=== PATIENT | female | born 1985 | race Caucasian/White ===

== ENCOUNTER 2017-02-26 19:25 | Emergency (ER) | payer OTHER ==
[2017-02-26 19:31] VITALS: BP 142/81; PULSE 84; RESP 16; TEMP 98.3; O2SAT 96; BMI 32.1
[2017-02-26 20:52] LABS: BASO # 0.1 K/uL (0.0-0.2); BASO % 0.7 % (0.0-2.0); EOS # 0.1 K/uL (0.0-0.7); EOS % 1.2 % (0.0-4.0); HEMATOCRIT 37.9 % (34.0-47.0); LYMPH # 3.7 K/uL (1.0-4.3); LYMPH % 36.3 % (20.0-40.0); MEAN CELL VOLUME 77.3 fl (81.0-99.0); MEAN CORPUSCULAR HEMOGLOBIN 25.1 pg (27.0-31.0); MEAN CORPUSCULAR HGB CONC 32.4 g/dL (33.0-37.0); MEAN PLATELET VOLUME 7.8 fl (7.2-11.7); MONO # 0.6 K/uL (0.0-0.8); MONO % 5.8 % (0.0-10.0); NEUT # 5.7 K/uL (1.8-7.0); NRBC % 0.1 % (0.0-0.0); RED CELL DISTRIBUTION WIDTH 14.2 % (11.5-14.5); WHITE BLOOD COUNT 10.2 K/uL (4.8-10.8)
--- NOTE | 2017-02-26 21:13 | ED PDOC ---
HPI: Abdomen Time Seen by Provider: 02/26/17 20:13 Chief Complaint (Nursing): Back Pain Chief Complaint (Provider): pelvic pain History Per: Patient History/Exam Limitations: no limitations Onset/Duration Of Symptoms: Days (x3) Current Symptoms Are (Timing): Still Present Additional Complaint(s): Marybeth Matute is a 31 year old female with previous medical history of ovarian cysts, who presents to the emergency department with intermittent mild right- sided pelvic pain associated with vomiting and breast "tenseness" ongoing for 3 days. Denied fever, chills, diarrhea, chest pain, difficulty urinating or bloody urine. Patient stated menstrual period was late this month and had 3 negative tests at home. PMD: none provided Past Medical History Reviewed: Historical Data, Nursing Documentation, Vital Signs Vital Signs: Last Vital Signs Temp 98.3 F 02/26/17 19:31 Pulse 84 02/26/17 19:31 Resp 16 02/26/17 19:31 BP 142/81 02/26/17 19:31 Pulse Ox 96 02/26/17 22:06 - Medical History PMH: No Chronic Diseases Other PMH: ovarian cyst - Surgical History Surgical History: No Surg Hx - Family History Family History: States: Unknown Family Hx - Social History Current smoker - smoking cessation education provided: No Ex-Smoker (has not smoked in the last 12 months): No Alcohol: Occasional Drugs: Denies - Immunization History Hx Tetanus Toxoid Vaccination: No Hx Influenza Vaccination: No Hx Pneumococcal Vaccination: No - Home Medications Home Medications: Ambulatory Orders Medication Instructions Recorded Cyclobenzaprine HCl [Flexeril] 10 mg PO TID #21 tab 03/26/13 Ibuprofen [Motrin] 600 mg PO Q6 PRN #25 tab 03/26/13 Acetaminophen with Codeine 1 tab PO Q8H #10 tab 07/31/14 [Tylenol with Codeine No. 3 300 mg-30 mg] Fluconazole [Diflucan] 150 mg PO ONCE #1 tablet 06/17/15 Naproxen [Anaprox DS] 550 mg PO BID #20 tab 06/17/15 Nitrofurantoin Macrocrystals 100 mg PO BID #6 cap 06/17/15 [Macrobid] Metronidazole [Flagyl] 500 mg PO BID #14 tablet 07/08/15 Nitrofurantoin Macrocrystals 100 mg PO BID #14 cap 07/08/15 [Macrobid] Valacyclovir HCl [Valtrex] 1 gm PO BID #20 tablet 07/08/15 - Allergies Allergies/Adverse Reactions: Allergies Allergy/AdvReac Type Severity Reaction Status Date / Time No Known Allergies Allergy Verified 07/08/15 19:14 Review of Systems ROS Statement: Except As Marked, All Systems Reviewed And Found Negative Constitutional: Negative for: Fever, Chills Cardiovascular: Positive for: Other (breast "tenseness"). Negative for: Chest Pain Gastrointestinal: Positive for: Vomiting. Negative for: Diarrhea Genitourinary Female: Positive for: Pelvic Pain (right-sided). Negative for: Dysuria, Hematuria Physical Exam - Reviewed Nursing Documentation Reviewed: Yes Vital Signs Reviewed: Yes - Physical Exam Appears: Positive for: Well, Non-toxic, No Acute Distress Head Exam: Positive for: ATRAUMATIC, NORMAL INSPECTION, NORMOCEPHALIC Skin: Positive for: Normal Color Eye Exam: Positive for: Normal appearance ENT: Positive for: Normal ENT Inspection Neck: Positive for: Normal, Painless ROM, Supple. Negative for: Decreased ROM Cardiovascular/Chest: Positive for: Regular Rate, Rhythm, Chest Non Tender Respiratory: Positive for: Normal Breath Sounds. Negative for: Decreased Breath Sounds, Wheezing, Respiratory Distress Gastrointestinal/Abdominal: Positive for: Normal Exam, Soft. Negative for: Tenderness, Mass Back: Positive for: Normal Inspection. Negative for: L CVA Tenderness, R CVA Tenderness Extremity: Positive for: Normal ROM. Negative for: Tenderness, Pedal Edema, Deformity Neurologic/Psych: Positive for: Alert, Oriented - Laboratory Results Result Diagrams: 02/26/17 20:40 02/26/17 20:40 - ECG O2 Sat by Pulse Oximetry: 96 (RA) Pulse Ox Interpretation: Normal Medical Decision Making Medical Decision Making: Initial Impression: Pelvic pain Differential Diagnosis: Ovarian cyst/torsion Initial Plan: * BMP * Urine preg * Urine dip CBC * US pelvis/transvag Time: 1951 --UA: negative for or UTI. Time: 2158 --US pelvis/transvag FINDINGS: Uterus/cervix: Unremarkable. No myometrial mass. Uterus measures 6.8 x 2.8 x 3.7 cm. Endometrial stripe measures 4 mm in thickness. Right ovary: Unremarkable. Normal blood flow. Right ovary measures 2.0 x 1.8 x 2.9 cm. Left ovary: Unremarkable. Normal blood flow. Left ovary measures 2.4 x 1.5 x 2.3 cm. Free fluid: No free fluid. IMPRESSION: Normal pelvic ultrasound Scribe Attestation: Documented by Madelin Deras, acting as a scribe for Denilson Salgado MD. Provider Scribe Attestation: All medical record entries made by the Scribe were at my direction and personally dictated by me. I have reviewed the chart and agree that the record accurately reflects my personal performance of the history, physical exam, medical decision making, and the department course for this patient. I have also personally directed, reviewed, and agree with the discharge instructions and disposition. Disposition - Clinical Impression Clinical Impression: Pelvic pain - Patient ED Disposition Is Patient to be Admitted: No Doctor Will See Patient In The: Office Counseled Patient/Family Regarding: Studies Performed, Diagnosis, Need For Followup - Disposition Referrals: [facility] [Outside] Disposition: Routine/Home Disposition Time: 22:46 Condition: GOOD Additional Instructions: Return for worsening. Follow up with your PCP in 2 -3 days. Instructions: Pelvic Pain in Women (ED)
[2017-02-26 21:43] LABS: BLOOD UREA NITROGEN 17 mg/dl (7-17); CALCIUM 9.3 mg/dL (8.4-10.2); CARBON DIOXIDE 21 mmol/L (22-30); CHLORIDE 104 mmol/L (98-107); GFR AFRICAN-AMERICAN > 60; GLUCOSE,RANDOM 98 mg/dL (65-105); POTASSIUM 3.7 MMOL/L (3.6-5.0); SODIUM 138 mmol/l (132-148)
--- NOTE | 2017-02-27 09:24 | US ---
HISTORY: Right pelvic pain COMPARISON: None available. TECHNIQUE: Transabdominal and transvaginal pelvic ultrasound was performed. FINDINGS: UTERUS: Measures 6.8 x 2.8 x 3.7 cm. Anteverted, normal in size and appearance. No fibroid or other mass lesion seen. ENDOMETRIUM: Measures 4.0 mm in diameter. Unremarkable. CERVIX: No cervical abnormality identified. RIGHT OVARY: Measures 2.9 x 1.8 x 2.9 cm. No solid mass. Normal flow. LEFT OVARY: Measures 2.4 x 1.5 x 2.3 cm. No solid mass. Normal flow. FREE FLUID: No significant free fluid noted. OTHER FINDINGS: None. IMPRESSION: Normal pelvic ultrasound.
== END 2017-02-26 23:09 | disposition home or self-care (01) ==
LOC: H.ER 19:25
DX: R10.2 Pelvic and perineal pain (principal); N83.209 Unspecified ovarian cyst, unspecified side

== ENCOUNTER 2018-04-07 16:58 | Emergency (ER) | payer OTHER, SELFPAY ==
[2018-04-07 16:58] VITALS: BMI 32.1
[2018-04-07 17:05] VITALS: RESP 16; O2SAT 99
[2018-04-07 18:10] LABS: BASO # 0.1 K/uL (0.0-0.2); BASO % 0.7 % (0.0-2.0); EOS # 0.1 K/uL (0.0-0.7); EOS % 1.1 % (0.0-4.0); HEMOGLOBIN 12.3 g/dL (12.0-16.0); LYMPH # 2.5 K/uL (1.0-4.3); LYMPH % 26.6 % (20.0-40.0); MEAN CELL VOLUME 78.1 fl (81.0-99.0); MEAN CORPUSCULAR HEMOGLOBIN 25.6 pg (27.0-31.0); MEAN CORPUSCULAR HGB CONC 32.8 g/dL (33.0-37.0); MEAN PLATELET VOLUME 7.8 fl (7.2-11.7); MONO # 0.6 K/uL (0.0-0.8); MONO % 6.1 % (0.0-10.0); NEUT # 6.2 K/uL (1.8-7.0); NEUT % 65.5 % (50.0-75.0); NRBC % 0.1 % (0.0-0.0); RBC 4.8 Mil/uL (3.80-5.20); RED CELL DISTRIBUTION WIDTH 14.1 % (11.5-14.5); WHITE BLOOD COUNT 9.5 K/uL (4.8-10.8)
[2018-04-07 18:23] LABS: ALB/GLOB RATIO 1.1 (1.0-2.1); ALBUMIN 4.6 g/dL (3.5-5.0); ALT/SGPT 60 U/L (9-52); AST/SGOT 35 U/L (14-36); BLOOD UREA NITROGEN 17 mg/dl (7-17); CALCIUM 8.9 mg/dL (8.4-10.2); GFR NON-AFRICAN AMERICAN > 60
--- NOTE | 2018-04-07 19:21 | ED PDOC ---
HPI: Female Pain Time Seen by Provider: 04/07/18 17:10 Chief Complaint (Nursing): Female Genitourinary Chief Complaint (Provider): Vaginal bleeding x 3 weeks History Per: Patient History/Exam Limitations: no limitations Onset/Duration Of Symptoms: Days Current Symptoms Are (Timing): Still Present Additional Complaint(s): 32 yo female with no medical problems presents for evaluation vaginal bleeding for 3 weeks. Pt states it has been similar to menses and at times spotting. Pt states she has an appointment at [facility] [place] at 930 and her C2 TACTICAL ANALYSIS TECHNICIAN told her to come to the [facility] for blood work. Pt states she felt a little dizzy at work this evening but it quickly resolved. PT denies any current symptoms. Past Medical History Reviewed: Historical Data, Nursing Documentation, Vital Signs Vital Signs: Last Vital Signs Temp 98.8 F 04/07/18 17:05 Pulse 89 04/07/18 17:05 Resp 16 04/07/18 17:05 BP 106/72 04/07/18 17:05 Pulse Ox 99 04/07/18 17:05 - Medical History PMH: No Chronic Diseases - Surgical History Surgical History: No Surg Hx - Family History Family History: States: Unknown Family Hx - Living Arrangements Living Arrangements: With Family - Social History Current smoker - smoking cessation education provided: No Alcohol: None Drugs: Denies - Immunization History Hx Tetanus Toxoid Vaccination: No Hx Influenza Vaccination: No Hx Pneumococcal Vaccination: No - Home Medications Home Medications: Ambulatory Orders Medication Instructions Recorded Cyclobenzaprine HCl [Flexeril] 10 mg PO TID #21 tab 03/26/13 Ibuprofen [Motrin] 600 mg PO Q6 PRN #25 tab 03/26/13 Acetaminophen with Codeine 1 tab PO Q8H #10 tab 07/31/14 [Tylenol with Codeine No. 3 300 mg-30 mg] Fluconazole [Diflucan] 150 mg PO ONCE #1 tablet 06/17/15 Naproxen [Anaprox DS] 550 mg PO BID #20 tab 06/17/15 Nitrofurantoin Macrocrystals 100 mg PO BID #6 cap 06/17/15 [Macrobid] Metronidazole [Flagyl] 500 mg PO BID #14 tablet 07/08/15 Nitrofurantoin Macrocrystals 100 mg PO BID #14 cap 07/08/15 [Macrobid] Valacyclovir HCl [Valtrex] 1 gm PO BID #20 tablet 07/08/15 - Allergies Allergies/Adverse Reactions: Allergies Allergy/AdvReac Type Severity Reaction Status Date / Time No Known Allergies Allergy Verified 04/07/18 17:05 Review of Systems ROS Statement: Except As Marked, All Systems Reviewed And Found Negative Constitutional: Negative for: Fever, Chills Cardiovascular: Negative for: Chest Pain, Palpitations Respiratory: Negative for: Shortness of Breath Gastrointestinal: Negative for: Nausea, Vomiting, Abdominal Pain, Diarrhea Genitourinary Female: Negative for: Dysuria, Frequency Physical Exam - Reviewed Nursing Documentation Reviewed: Yes Vital Signs Reviewed: Yes - Physical Exam Appears: Positive for: Well, Non-toxic, No Acute Distress Head Exam: Positive for: ATRAUMATIC, NORMAL INSPECTION, NORMOCEPHALIC Skin: Positive for: Normal Color, Warm, DRY Eye Exam: Positive for: Normal appearance ENT: Positive for: Normal ENT Inspection Neck: Positive for: Normal, Painless ROM Cardiovascular/Chest: Positive for: Regular Rate, Rhythm Respiratory: Positive for: Normal Breath Sounds. Negative for: Accessory Muscle Use, Respiratory Distress Gastrointestinal/Abdominal: Negative for: Tenderness Back: Positive for: Normal Inspection Extremity: Positive for: Normal ROM Neurologic/Psych: Positive for: Alert, Oriented - Laboratory Results Result Diagrams: 04/07/18 18:07 04/07/18 18:07 - ECG O2 Sat by Pulse Oximetry: 99 Pulse Ox Interpretation: Normal Medical Decision Making Medical Decision Making: Labs normal. Discussed f/u with C2 TACTICAL ANALYSIS TECHNICIAN Disposition - Clinical Impression Clinical Impression: Metrorrhagia - Patient ED Disposition Is Patient to be Admitted: No - Disposition Disposition: Routine/Home Disposition Time: 19:23 Condition: GOOD Instructions: Absent or Irregular Periods
[2018-04-08 04:34] VITALS: BP 122/64; PULSE 80; TEMP 97.7
== END 2018-04-07 19:30 | disposition home or self-care (01) ==
LOC: H.ER 16:58
DX: N92.1 Excessive and frequent menstruation with irregular cycle (principal)